=== PATIENT | female | born 1980 | race Asian ===

== ENCOUNTER → 2018-01-12 | Outpatient (CLI) | payer OTHER ==
--- NOTE | 2018-01-12 10:44 | KCIC ---
CT ABDOMEN PELVIS WO CONTRAST Indication: Right flank pain. Exposure: One or more of the following individualized dose reduction techniques were utilized for this examination: 1. Automated exposure control 2. Adjustment of the mA and/or kV according to patient size 3. Use of iterative reconstruction technique. Comparison: None are available. Contrast: No intravenous contrast given. No oral contrast per request. Evaluation of solid viscera, bowel and vasculature is compromised by the noncontrast technique. Lower thorax: Lung bases are clear. Liver: Unremarkable Spleen: Unremarkable Pancreas: Unremarkable Adrenals:No evidence of mass. Kidneys:Unremarkable Urinary tracts:No urolithiasis or hydronephrosis. Gallbladder: No calcified stone Aorta: Nonaneurysmal Lymph nodes: No significant enlargement GI tract: No evidence of acute colitis. No evidence of bowel obstruction. Appendix is normal. Reproductive organs:No evidence of mass. Urinary bladder: Unremarkable. Peritoneum: Trace free pelvic fluid, may be physiologic. Abdominal wall: Unremarkable Spine: Vertebral body height and alignment are intact. Transitional vertebral body at the lumbosacral junction Bones: No destructive process identified. IMPRESSION: 1. No evidence of urinary tract calculus or obstruction. 2. No acute findings. 3. Trace free pelvic fluid, may be physiologic. Electronically signed by: Akil Noriega MD (01/12/2018 10:40 AM) [id number]
== END | disposition home or self-care (01) ==
LOC: KCIC CT 09:27
PROVIDERS: ATTEND Family Medicine
DX: R10.84 Generalized abdominal pain (principal)
CPT/HCPCS: 74176